=== PATIENT | male | born 1990 | race Caucasian/White ===

== ENCOUNTER 2017-03-10 00:41 | Emergency (ER) | payer OTHER ==
[~2017-03-10] VITALS: Ht 185.4 cm; Wt 86.5 kg
[2017-03-10] MEDS ORDERED: NORCO 5/3251 TABLET PO (01:53)
[2017-03-10] MEDS ORDERED: AMOXICILLIN875 MG PO (01:53)
[2017-03-10] MEDS ORDERED: MOTRIN600 MG PO (01:53)
[2017-03-10 02:11] VITALS: BP 121/73
== END 2017-03-10 02:11 | disposition home or self-care (01) ==
LOC: EME 00:41
DX: J03.90 Acute tonsillitis, unspecified (principal)
CPT/HCPCS: 87651 90; 99281; 99284; J1100

== ENCOUNTER 2017-03-17 18:35 | Emergency (ER) | payer OTHER ==
[~2017-03-17] VITALS: Ht 185.4 cm; Wt 86.1 kg
[~2017-03-17 18:35] MED LIST: AMOXICILLIN875 MG PO; MOTRIN600 MG PO; NORCO 5/3251 TABLET PO
[2017-03-17 20:14] LABS: CHLORIDE 101 mEq/L (99-109); POTASSIUM 4.3 mEq/L (3.7-5.4); SODIUM 138 mEq/L (136-147)
[2017-03-17 20:16] LABS: GLUCOSE 79 mg/dL (70-99)
[2017-03-17 20:18] LABS: ANION GAP 11 MEQ/L (2-14); TOTAL BILIRUBIN 0.9 mg/dL (0.0-1.0)
[2017-03-17 20:20] LABS: ALKALINE PHOSPHATASE 104 IU/L (3-129); GFR ESTIMATE (CALCULATED) > 59 mL/min/
[2017-03-17 20:21] LABS: UREA NITROGEN (BUN) 13 mg/dL (9-23)
[2017-03-17 20:44] LABS: INTERNAL CONTROL VALID? YES; MONOSPOT (MONONUCLEOSIS SEROL) NEGATIVE
[2017-03-17] MEDS ORDERED: ZITHROMAX500 MG PO (21:01)
[2017-03-17] MEDS ORDERED: PREDNISONE20 MG PO (21:01)
[2017-03-17 21:30] VITALS: BP 110/80
== END 2017-03-17 21:30 | disposition home or self-care (01) ==
LOC: EME 18:35
PROVIDERS: Physician Assistant
DX: J02.9 Acute pharyngitis, unspecified (principal); F17.200 Nicotine dependence, unspecified, uncomplicated; Z88.1 Allergy status to other antibiotic agents
CPT/HCPCS: 80053; 86308; 87651 90; 99281; 99284; J7512

== ENCOUNTER 2017-10-19 11:41 | Emergency (ER) | payer OTHER ==
[~2017-10-19] VITALS: Ht 185.4 cm; Wt 85.5 kg
[~2017-10-19 11:41] MED LIST changes: +PREDNISONE20 MG PO; +ZITHROMAX500 MG PO
[2017-10-19] MEDS ORDERED: KEFLEX500 MG PO (14:41)
[2017-10-19] MEDS ORDERED: MOTRIN600 MG PO (14:41)
[2017-10-19 15:03] VITALS: BP 102/80
== END 2017-10-19 15:04 | disposition home or self-care (01) ==
LOC: EME 11:41
DX: J02.0 Streptococcal pharyngitis (principal); Z88.0 Allergy status to penicillin
CPT/HCPCS: 87651 90; 99281; 99282

== ENCOUNTER 2017-12-15 00:54 | Emergency (ER) | payer OTHER ==
[~2017-12-15] VITALS: Ht 185.4 cm; Wt 87.1 kg
[~2017-12-15 00:54] MED LIST changes: +KEFLEX500 MG PO
[2017-12-15] MEDS ORDERED: ZITHROMAX250 MG PO (01:59)
[2017-12-15] MEDS ORDERED: MOTRIN600 MG PO (01:59)
[2017-12-15 02:06] VITALS: BP 130/92
== END 2017-12-15 02:07 | disposition home or self-care (01) ==
LOC: EME 00:54
DX: J02.0 Streptococcal pharyngitis (principal); F17.200 Nicotine dependence, unspecified, uncomplicated; J45.909 Unspecified asthma, uncomplicated; Z88.0 Allergy status to penicillin
CPT/HCPCS: 87651 90; 99281; 99284